=== PATIENT | female | born 1995 | race Two or more races ===

== ENCOUNTER 2019-05-01 13:38 | Emergency (ER) | payer SELFPAY ==
[~2019-05-01] VITALS: Ht 170.2 cm; Wt 77.8 kg
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
[2019-05-01] MEDS ORDERED: KETOROLAC 30 MG/1 ML IM ONE (14:30)
[2019-05-01] MEDS ORDERED: KETOROLAC 30 MG/1 ML ONE (15:00)
--- NOTE | 2019-05-01 15:06 | NUR ---
PT IN BED, RESPIRATIONS EVEN AND UNLABORED, NO SIGNS OF DISTESS. AT BEDSIDE.
[2019-05-01 15:56] VITALS: BP 108/68
== END 2019-05-01 16:00 | disposition home or self-care (01) ==
LOC: EDBD 13:38 → ED 15:45
DX: S20.212A Contusion of left front wall of thorax, initial encounter (principal); X58.XXXA Exposure to other specified factors, initial encounter; Y93.89 Activity, other specified; Y92.89 Other specified places as the place of occurrence of the external cause; Y99.8 Other external cause status
CPT/HCPCS: 71046; 93005; 99284; J1885